=== PATIENT | female | born 1970 | race Caucasian/White ===

== ENCOUNTER 2016-07-12 10:30 | Day surgery (SDC) | payer BC, OTHER ==
[~2016-07-12] VITALS: Ht 162.6 cm; Wt 72.1 kg
[2016-07-12] MEDS ORDERED: NS IV 1000 ML 1,000 ML IV ONE (10:51)
[2016-07-12 10:57] LABS: BASOPHILS % (AUTO) 0 % (0-10); BILIRUBIN,URINE NEGATIVE (NEGATIVE); EOSINOPHILS # (AUTO) 0.3 10^3/uL (0.0-0.3); EOSINOPHILS % (AUTO) 2 % (0-10); KETONES,URINE NEGATIVE (NEGATIVE); LEUKOCYTE ESTERASE ,URINE NEGATIVE (NEGATIVE); LYMPHOCYTES # (AUTO) 4.3 X 10^3 (1.0-4.0); LYMPHOCYTES % (AUTO) 34 % (12-44); MEAN CORPUSCULAR HEMOGLOBIN 33 PG (25-34); MEAN CORPUSCULAR HGB CONC 35 G/DL (32-36); MEAN CORPUSCULAR VOLUME 95 FL (80-99); MEAN PLATELET VOLUME 9.3 FL (7.4-10.4); MONOCYTES # (AUTO) 0.8 X 10^3 (0.0-1.0); MONOCYTES % (AUTO) 7 % (0-12); NEUTROPHILS % (AUTO) 57 % (42-75); NITRITE,URINE NEGATIVE (NEGATIVE); PH,URINE 7 (5-9); PLATELET COUNT 265 10^3/uL (130-400); PROTEIN,URINE NEGATIVE (NEGATIVE); RED CELL DISTRIBUTION WIDTH 12.7 % (10.0-14.5); UROBILINOGEN,URINE NORMAL (NORMAL); WHITE BLOOD COUNT 12.4 10^3/uL (4.3-11.0)
[2016-07-12 11:04] LABS: SQUAMOUS EPITHELIAL CELL,UR 0-2 /HPF
[2016-07-12 11:14] LABS: ALANINE AMINOTRANSFERASE 30 U/L (0-55); ALBUMIN 4.9 G/DL (3.2-4.5); ANION GAP 10 MMOL/L (5-14); ASPARTATE AMINO TRANSFERASE 24 U/L (5-34); BILIRUBIN,TOTAL 0.3 MG/DL (0.1-1.0); BLOOD UREA NITROGEN 7 MG/DL (7-18); BUN/CREATININE RATIO 9; CALCIUM 9.4 MG/DL (8.5-10.1); CARBON DIOXIDE 22 MMOL/L (21-32); CHLORIDE 105 MMOL/L (98-107); CREATININE SERUM 0.82 MG/DL (0.60-1.30); GFR ESTIMATED > 60; GLUCOSE 80 MG/DL (70-105); POTASSIUM 4.5 MMOL/L (3.6-5.0); SODIUM 137 MMOL/L (135-145); TOTAL PROTEIN 8.4 G/DL (6.4-8.2)
[2016-07-12] MEDS ORDERED: fentaNYL INJECTION 100 MCG/2 ML AMP IVP STA (11:30)
--- NOTE | 2016-07-12 11:39 | ED Abdominal Pain ---
General Chief Complaint: Abdominal/GI Problems Stated Complaint: ABD PAIN Nursing Triage Note: PT CO OF ABD PAIN FOR APPROX 3 DAYS, R LOWER QUAD, LOW GRADE FEVER. Sepsis Screen: No Definite Risk Source of Information: Patient Exam Limitations: No Limitations History of Present Illness Time Seen By Provider: 11:25 Initial Comments Here with complaint of increasing right lower abdominal pain for the last 3 days. Also reports that she has had fever and chills subjectively. Has had some nausea but no diarrhea. Last meal at midnight at work but did not eat much and did take some ibuprofen this morning for fever. Denies dysuria, diarrhea or vaginal discharge. Pain worsens when walking or moving. Timing/Duration: 2-3 Days, Getting Worse, Intermittent Severity/Quality: Moderate, Sharp Location: RLQ Radiation: Back Activities at Onset: None Modifying Factors: Worsens With Movement Associated Symptoms: Fever/Chills, Nausea/Vomiting, No Swelling/Mass in Abdomen , No Weakness Allergies and Home Medications Allergies Coded Allergies: codeine (Verified Allergy, Unknown, 07/12/16) peanut (Verified Allergy, Unknown, 07/12/16) Uncoded Allergies: eggs (Allergy, Unknown, 07/12/16) Home Medications No Active Prescriptions or Reported Meds Review of Systems Constitutional: see HPI, chills, fever EENTM: No Symptoms Reported Respiratory: No Symptoms Reported Cardiovascular: No Symptoms Reported Gastrointestinal: See HPI, Abdominal Pain, Denies Diarrhea, Nausea, Vomiting Genitourinary: No Symptoms Reported Musculoskeletal: see HPI, No muscle weakness Skin: no symptoms reported All Other Systems Reviewed Negative Unless Noted: Yes Past Upmprqd-Asxkqu-Igpzeu Hx Patient Social History Alcohol Use: Denies Use Recreational Drug Use: No Smoking Status: Current Everyday Smoker Type Used: Cigarettes Recent Foreign Travel: No Contact w/Someone Who Travel: No Recent Infectious Disease Expo: No Surgeries HX Surgeries: Yes Surgeries: Abdominal, Gallbladder, Tubal Ligation Respiratory Hx Respiratory Disorders: No Cardiovascular Hx Cardiac Disorders: No Neurological Hx Neurological Disorders: No Reproductive System Female Reproductive Disorders: 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 Genitourinary Hx Genitourinary Disorders: No Gastrointestinal Hx Gastrointestinal Disorders: No Musculoskeletal Hx Musculoskeletal Disorders: No Reviewed Nursing Assessment Reviewed/Agree w Nursing PMH: Yes Family Medical History Significant Family History: No Pertinent Family Hx Physical Exam Vital Signs VS - Last 72 Hours, by Label 07/12/16 10:51 Temp 98.2 Pulse 73 Resp 18 B/P (MAP) 155/98 Pulse Ox 100 Capillary Refill : Less Than 3 Seconds General Appearance: WD/WN, mild distress HEENT: PERRL/EOMI, pharynx normal Neck: full range of motion, supple Respiratory: lungs clear, normal breath sounds Cardiovascular: regular rate, rhythm, no murmur Peripheral Pulses: 2+ Dorsalis Pedis (R), 2+ Left Dors-Pedis (L), 2+ Radial Pulses (R), 2+ Radial Pulses (L) Gastrointestinal: soft, guarding, tenderness (right lower quadrant) Extremities: non-tender, normal inspection Back: normal inspection, no CVA tenderness, no vertebral tenderness Neurologic/Psychiatric: alert, oriented x 3 Skin: normal color, warm/dry Progress/Results/Core Measures Results/Orders Lab Results Laboratory Tests Test 07/12/16 10:45 Range/Units White Blood Count 12.4 H 4.3-11.0 10^3/uL Red Blood Count 4.70 4.35-5.85 10^6/uL Hemoglobin 15.5 11.5-16.0 G/DL Hematocrit 45 35-52 % Mean Corpuscular Volume 95 80-99 FL Mean Corpuscular Hemoglobin 33 25-34 PG Mean Corpuscular Hemoglobin Concent 35 32-36 G/DL Red Cell Distribution Width 12.7 10.0-14.5 % Platelet Count 265 130-400 10^3/uL Mean Platelet Volume 9.3 7.4-10.4 FL Neutrophils (%) (Auto) 57 42-75 % Lymphocytes (%) (Auto) 34 12-44 % Monocytes (%) (Auto) 7 0-12 % Eosinophils (%) (Auto) 2 0-10 % Basophils (%) (Auto) 0 0-10 % Neutrophils # (Auto) 7.0 1.8-7.8 X 10^3 Lymphocytes # (Auto) 4.3 H 1.0-4.0 X 10^3 Monocytes # (Auto) 0.8 0.0-1.0 X 10^3 Eosinophils # (Auto) 0.3 0.0-0.3 10^3/uL Basophils # (Auto) 0.0 0.0-0.1 10^3/uL Urine Color YELLOW Urine Clarity CLEAR Urine pH 7 5-9 Urine Specific [place] 1.005 L 1.016-1.022 Urine Protein NEGATIVE NEGATIVE Urine Glucose (UA) NEGATIVE NEGATIVE Urine Ketones NEGATIVE NEGATIVE Urine Nitrite NEGATIVE NEGATIVE Urine Bilirubin NEGATIVE NEGATIVE Urine Urobilinogen NORMAL NORMAL MG/DL Urine Leukocyte Esterase NEGATIVE NEGATIVE Urine RBC (Auto) 2+ H NEGATIVE Urine RBC 0-2 /HPF Urine WBC NONE /HPF Urine Squamous Epithelial Cells 0-2 /HPF Urine Crystals NONE /LPF Urine Bacteria NEGATIVE /HPF Urine Casts NONE /LPF Urine Mucus NEGATIVE /LPF Urine Culture Indicated NO Urine Test NEGATIVE NEGATIVE Sodium Level 137 135-145 MMOL/L Potassium Level 4.5 3.6-5.0 MMOL/L Chloride Level 105 98-107 MMOL/L Carbon Dioxide Level 22 21-32 MMOL/L Anion Gap 10 5-14 MMOL/L Blood Urea Nitrogen 7 7-18 MG/DL Creatinine 0.82 0.60-1.30 MG/DL Estimat Glomerular Filtration Rate > 60 BUN/Creatinine Ratio 9 Glucose Level 80 70-105 MG/DL Calcium Level 9.4 8.5-10.1 MG/DL Total Bilirubin 0.3 0.1-1.0 MG/DL Aspartate Amino Transf (AST/SGOT) 24 5-34 U/L Alanine Aminotransferase (ALT/SGPT) 30 0-55 U/L Alkaline Phosphatase 55 40-136 U/L Total Protein 8.4 H 6.4-8.2 G/DL Albumin 4.9 H 3.2-4.5 G/DL My Orders Orders - AGUILA MASCORRO MD Cbc With Automated Diff (07/12/16 10:51) Comprehensive Metabolic Panel (07/12/16 10:51) Hcg,Qualitative Urine (07/12/16 10:51) Ua Culture If Indicated (07/12/16 10:51) Saline Lock/Iv-Start (07/12/16 10:51) Ns Iv 1000 Ml (Sodium Chloride 0.9%) (07/12/16 10:51) Ct Abd/Pelv W (Appendicitis) (07/12/16 11:30) Fentanyl Injection (Sublimaze Injection (07/12/16 11:30) Iohexol Injection (Omnipaque 350 Mg/Ml 1 (07/12/16 11:45) Sodium Chloride Flush (Catheter Flush Sy (07/12/16 11:45) Ns (Ivpb) (Sodium Chloride 0.9% Ivpb Bag (07/12/16 11:45) Medications Given in ED Current Medications Medications Dose Ordered Sig/Kristal Route Start Time Stop Time Status Last Admin Dose Admin Iohexol 100 ml ONCE ONCE IV 07/12/16 11:45 07/12/16 11:58 DC 07/12/16 11:45 100 ML Sodium Chloride 100 ml ONCE ONCE IV 07/12/16 11:45 07/12/16 11:58 DC 07/12/16 11:45 80 ML Sodium Chloride 1,000 ml @ 0 mls/hr Q0M ONCE IV 07/12/16 10:51 07/12/16 10:53 DC 07/12/16 11:28 1,000 MLS/HR Vital Signs/I&O Vital Sign - Last 12Hours 07/12/16 10:51 Temp 98.2 Pulse 73 Resp 18 B/P (MAP) 155/98 Pulse Ox 100 Blood Pressure Mean: 117 Progress Note : Progress Note Seen and evaluated. IV, labs, UA, normal saline 1 L bolus, Zofran 4 mg IV ordered. Fentanyl [address] abdomen pelvis ordered. Monitor patient. 1311: I did discuss the case with Dr. Gandhi. Patient still has exam findings concerning for appendicitis with CT does not show it. I have asked him to see the patient in the ER. 1345: Dr. Gandhi has seen the patient in the ER and agrees that there is a high likelihood of early acute appendicitis and he has discussed this with the patient. Ultimately they decided that she would have an appendectomy. Patient remains nothing by mouth. Admit, observation status. Patient to go to the OR later this evening. Patient comfortable after pain medicines given earlier. Patient and family agree with plan. Diagnostic Imaging Diagonstic Imaging: CT Plain Films/CT/US/NM/MRI: abdomen, pelvis Comments NAME: SARA CULLEN [facility] REC#: [id number] PT STATUS: REG ER : 1970 PHYSICIAN: AGUILA MASCORRO MD ADMIT DATE: 07/12/16/ER Signed Date of Exam: 07/12/16 CT ABD/PELV W (APPENDICITIS) PROCEDURE: CT abdomen and pelvis with contrast, rule out appendicitis. TECHNIQUE: Multiple contiguous axial images were obtained through the abdomen and pelvis after the administration of intravenous contrast. INDICATION: Abdominal pain. 100 mL of Omnipaque-350 is administered intravenously. FINDINGS: Minimal atelectasis at the lung bases seen. The liver demonstrates a hypodense lesion in the right hepatic lobe measuring 1.5 x 1.2 cm with delayed enhancement of uncertain etiology. There is mild intrahepatic biliary dilatation. The CBD is minimally dilated at 1.2 cm. Cholecystectomy clips are seen. The spleen and the adrenal glands appear unremarkable. The pancreas demonstrates minimal dilatation of the pancreatic duct measuring up to 4 mm in caliber. The left kidney demonstrates an upper pole 2.3 cm simple cyst. Symmetric enhancement otherwise in the parenchyma is seen with no focal lesion. The abdominal aorta is normal in caliber. No para-aortic significantly enlarged lymph node is seen. There is no bowel obstruction. The urinary bladder is mildly distended with no focal mass identified. The appendix projects into the upper posterior aspect of the pelvis. The uterus and adnexa appear grossly unremarkable. No free fluid or fluid collection in the abdomen or pelvis seen. The osseous structures appear grossly unremarkable. IMPRESSION: 1. Hypodense 1.2 cm mass in the right hepatic lobe of uncertain etiology. Further evaluation with MRI of the abdomen, liver mass protocol is recommended. 2. Minimal dilatation of the biliary tree and the pancreatic duct with no focal lesion identified. Dictated by: Dictated on workstation # [id number] Dict: 07/12/16 1205 Trans: 07/12/16 1232 [id number] Interpreted by: ANGELINA ZARCO MD Electronically signed by:ANGELINA ZARCO MD 07/12/16 1232 Departure Communication Time/Spoke to Admitting Phy: 13:11 Impression Impression: Primary Impression: Appendicitis Qualified Codes: K35.3 - Acute appendicitis with localized peritonitis Disposition: ADMITTED INPATIENT Condition: Stable Decision to Admit Reason: Admit from ER (General) Decision to Admit/Date: Jul 12, 2016 Time/Decision to Admit Time: 13:45 Departure-Patient Inst. Referrals: [facility] (PCP/Family) Primary Care Physician Scripts No Active Prescriptions or Reported Meds AGUILA MASCORRO MD Jul 12, 2016 11:39
[2016-07-12] MEDS ORDERED: CATHETER FLUSH 10 ML SYR IV PRN ×2 (11:45→15:00)
[2016-07-12] MEDS ORDERED: NS 100 ML (IVPB) BAG IV ONE (11:45)
[2016-07-12] MEDS ORDERED: IOHEXOL 350 MG/ML 100 ML (OMNIPAQUE 350) VIAL IV ONE (11:45)
--- NOTE | 2016-07-12 12:31 | Diagnostic Imaging Report ---
PROCEDURE: CT abdomen and pelvis with contrast, rule out appendicitis. TECHNIQUE: Multiple contiguous axial images were obtained through the abdomen and pelvis after the administration of intravenous contrast. INDICATION: Abdominal pain. 100 mL of Omnipaque-350 is administered intravenously. FINDINGS: Minimal atelectasis at the lung bases seen. The liver demonstrates a hypodense lesion in the right hepatic lobe measuring 1.5 x 1.2 cm with delayed enhancement of uncertain etiology. There is mild intrahepatic biliary dilatation. The CBD is minimally dilated at 1.2 cm. Cholecystectomy clips are seen. The spleen and the adrenal glands appear unremarkable. The pancreas demonstrates minimal dilatation of the pancreatic duct measuring up to 4 mm in caliber. The left kidney demonstrates an upper pole 2.3 cm simple cyst. Symmetric enhancement otherwise in the parenchyma is seen with no focal lesion. The abdominal aorta is normal in caliber. No para-aortic significantly enlarged lymph node is seen. There is no bowel obstruction. The urinary bladder is mildly distended with no focal mass identified. The appendix projects into the upper posterior aspect of the pelvis. The uterus and adnexa appear grossly unremarkable. No free fluid or fluid collection in the abdomen or pelvis seen. The osseous structures appear grossly unremarkable. IMPRESSION: 1. Hypodense 1.2 cm mass in the right hepatic lobe of uncertain etiology. Further evaluation with MRI of the abdomen, liver mass protocol is recommended. 2. Minimal dilatation of the biliary tree and the pancreatic duct with no focal lesion identified. Dictated by: Dictated on workstation # [id number]
--- NOTE | 2016-07-12 14:10 | History & Physicial ---
History of Present Illness History of Present Illness Reason for visit/HPI 36 hours of pain over the right lower quadrant of the abdomen, associated with nausea and anorexia. No gynecologic symptoms Date of Admission I consulted on this patient on 07/12/16 14:07 Attending Physician Admitting Physician Gianna,[facility] Allergies and Home Medications Allergies Coded Allergies: codeine (Verified Allergy, Unknown, 07/12/16) peanut (Verified Allergy, Unknown, 07/12/16) Uncoded Allergies: eggs (Allergy, Unknown, 07/12/16) Home Medications No Active Prescriptions or Reported Meds Past Scpfpsl-Ubgkii-Okgtxf Hx Patient Social History Marrital Status: cohabiting Employed/Student: employed Alcohol Use: Denies Use Recreational Drug Use: No Smoking Status: Current Everyday Smoker Type Used: Cigarettes Recent Foreign Travel: No Contact w/other who traveled: No Recent Infectious Disease Expo: No Surgeries HX Surgeries: Yes Surgeries: Abdominal, Gallbladder, Tubal Ligation Respiratory Hx Respiratory Disorders: No Cardiovascular Hx Cardiovascular Disorders: No Neurological Hx Neurological Disorders: No Reproductive System Female Reproductive Disorders: Endometriosis Genitourinary Hx Genitourinary Disorders: No Gastrointestinal Hx Gastrointestinal Disorders: No Musculoskeletal Hx Musculoskeletal Disorders: No Reviewed Nursing Assessment Reviewed/Agree w Nursing PMH: Yes Family Medical History Significant Family History: No Pertinent Family Hx Constitutional: malaise EENTM: no symptoms reported Respiratory: no symptoms reported Cardiovascular: no symptoms reported Gastrointestinal: RLQ, abdominal pain (RLQ) Genitourinary: no symptoms reported : No Musculoskeletal: no symptoms reported Skin: no symptoms reported Psychiatric/Neurological: No Symptoms Reported Other anorexia Physical Exam Vital Signs Vital Sign - Last 12Hours 07/12/16 10:51 Temp 98.2 Pulse 73 Resp 18 B/P (MAP) 155/98 Pulse Ox 100 Capillary Refill : Less Than 3 Seconds General Appearance: Mild Distress HEENT: PERRL/EOMI Neck: Normal Inspection Respiratory: Lungs Clear Cardiovascular: Regular Rate, Rhythm Gastrointestinal: Tenderness Rectal: Deferred Extremity: Normal Inspection Neurologic/Psychiatric: Alert, Oriented x3 Skin: Warm/Dry Comments severe tenderness over the right lower quadrant. Subumbilical laparoscopic scar without incisional hernia Assessment/Plan Assessment and Plan lady with clinical features very indicating of appendicitis. CT negative. Leukocytosis. Reasonable to perform left scapular appendectomy. Operative details, expected recovery, the possibility of finding a normal appendix, postoperative wound infection and intra-abdominal abscess discussed in detail. Seems to understand and is willing to proceed with surgery, that'll be performed later today Problems: YOVANNY BARRIENTOS MD Jul 12, 2016 14:10
--- NOTE | 2016-07-12 14:11 | Progress Note-Pre Operative ---
Pre-Operative Progress Note H&P Reviewed The H&P was reviewed, patient examined and no changes noted. Date H&P Reviewed: Jul 12, 2016 Time H&P Reviewed: 14:10 Pre-Operative Diagnosis: right lower quadrant pain, possible appendicitis YOVANNY BARRIENTOS MD Jul 12, 2016 14:11
[2016-07-12] MEDS ORDERED: BUP/EPI 0.25% 1:200,000 (MARCAINE) 30 ML VIAL ONE (14:40)
[2016-07-12] MEDS ORDERED: morphine INJ 10 MG/ML 1ML (SYR OR VIAL) ONE (14:41)
[2016-07-12] MEDS ORDERED: LORA10TA7 PO (14:44)
[2016-07-12] MEDS ORDERED: LIDOCAINE PF 2% 10 ML (XYLOCAINE) AMP ONE (14:54)
[2016-07-12] MEDS ORDERED: SEVOFLURANE (ULTANE) 15 ML INHAL SOLN ONE ×5 (14:54→16:15)
[2016-07-12] MEDS ORDERED: LACTATED RINGERS 1,000 ML IV ONE ×2 (14:54→15:53)
[2016-07-12] MEDS ORDERED: proPOfol 200 MG/20 ML (DIPRIVAN) VIAL IV ONE (14:54)
[2016-07-12] MEDS ORDERED: MIDAZOLAM 2 MG/2 ML (VERSED) VIAL ONE (14:55)
[2016-07-12] MEDS ORDERED: fentaNYL INJECTION 100 MCG/2 ML AMP ONE ×2 (14:55→15:45)
[2016-07-12] MEDS ORDERED: ceFAZolin 1,000 MG (ANCEF) VIAL ONE ×2 (14:56→18:38)
[2016-07-12] MEDS ORDERED: NS (IVPB) 100 ML ONE (14:57)
[2016-07-12] MEDS ORDERED: fentaNYL INJECTION 100 MCG/2 ML AMP IV PRN ×3 (15:00→16:45)
[2016-07-12] MEDS ORDERED: ONDANSETRON 4 MG/2 ML (SDV) Z0FRAN IV PRN ×2 (15:00→16:30)
[2016-07-12] MEDS ORDERED: NS IV 1000 ML 1,000 ML IV SCH (15:00)
[2016-07-12] MEDS: LACTATED RINGERS 1,000 ML IV SCH ×4 (15:20→17:57)
[2016-07-12] MEDS: ceFAZolin 2 GM/50 ML NS 50 ML IV NR ×2 (15:20→15:59)
[2016-07-12] MEDS ORDERED: FLU TRIvalent (5 YOA+) 2016-17 (AFLURIA) 0.5 ML IM ONE (15:30)
[2016-07-12] MEDS ORDERED: ONDANSETRON 4 MG/2 ML (SDV) Z0FRAN ONE (15:32)
[2016-07-12] MEDS ORDERED: DEXAMETHASONE PF 10 MG/ML (DECADRON) VIAL ONE (15:32)
[2016-07-12] MEDS: metroNIDAZOLE 500MG/100ML IVPB 100 ML IV NR ×2 (15:35→15:59)
[2016-07-12] MEDS ORDERED: GLYCOPYRROLATE 0.2 MG/ML (ROBINUL) 2 ML VIAL ONE (16:06)
[2016-07-12] MEDS ORDERED: NEOSTIGMINE (BLOXIVERZ ) 1 MG/1ML 10 ML VIAL ONE (16:06)
--- NOTE | 2016-07-12 16:30 | Progress Note-Post Operative ---
Post-Operative Progess Note Surgeon (s)/Honing Machine Set Up Operator Tool (s) Surgeon YOVANNY BARRIENTOS MD Honing Machine Set Up Operator Tool: sCRUB NURSE Pre-Operative Diagnosis right lower quadrant pain, possible appendicitis Post-Operative Diagnosis aCUTE RETROCECAL APPENDICITIS WITH Appendicolith Post-Op Procedure Note Date of Procedure: Jul 12, 2016 Name of Procedure Performed: Laparoscopic appendectomy Description of the Procedure: Routine Findings of the Procedure inflamed retrocecal appendix with appendicolith Estimated blood loss (mL): Minimal Specimen(s) collected/removed Appendix YOVANNY BARIRENTOS MD Jul 12, 2016 4:30 pm
[2016-07-12] MEDS ORDERED: TRAM50TA2 PO (16:35)
--- NOTE | 2016-07-12 16:35 | Discharge Inst-Simple/Standard ---
Discharge Inst-Standard Discharge Medications New, Converted or Re-Newed RX: RX on Chart Patient Instructions/Follow Up Plan of Care/Instructions/FU: Dressings off in a.m. Follow-up in 2 weeks Activity as Tolerated: Yes Discharge Diet: No Restrictions YOVANNY BARRIENTOS MD Jul 12, 2016 4:35 pm
[2016-07-12] MEDS ORDERED: morphine INJ 10 MG/ML 1ML (SYR OR VIAL) IV PRN (16:45)
[2016-07-12] MEDS ORDERED: ONDANSETRON 4 MG/2 ML (SDV) Z0FRAN IV ONE (16:45)
[2016-07-12] MEDS ORDERED: HYDROmorphone (DILAUDID) 2 MG/ML VIAL IV PRN (16:45)
[2016-07-12 17:30] VITALS: BP 131/90
[2016-07-12 20:00] VITALS: BP 100/68
[2016-07-12] MEDS: ceFAZolin INJECTION 1,000 MG in NS (IVPB) 50 ML IV SCH (21:32)
[2016-07-12] MEDS: metroNIDAZOLE 500MG/100ML IVPB 100 ML IV SCH (22:24)
[2016-07-13] VITALS: BP 103/72
[2016-07-13] MEDS: LACTATED RINGERS 1,000 ML IV SCH (03:13)
[2016-07-13 04:00] VITALS: BP 116/74
[2016-07-13] MEDS: metroNIDAZOLE 500MG/100ML IVPB 100 ML IV SCH (05:33)
[2016-07-13] MEDS ORDERED: KETOROLAC 15 MG/ML VIAL IV SCH (06:00)
[2016-07-13] MEDS: ceFAZolin INJECTION 1,000 MG in NS (IVPB) 50 ML IV SCH (06:35)
[2016-07-13 08:00] VITALS: BP 125/80
--- NOTE | 2016-07-13 08:13 | Progress Note-Standard ---
Standard Progress Note Progress Notes/Assess & Plan Progress/Assessment & Plan 07/13/16:doing well. Tolerating diet. Incisions dry. Could be discharged. Final Diagnosis acute appendicitis YOVANNY BARRIENTOS MD Jul 13, 2016 8:13 am
--- NOTE | 2016-07-13 08:21 | OPERATIVE REPORT ---
PROCEDURE PHYSICIAN: YOVANNY BARRIENTOS DATE OF PROCEDURE: 07/12/2016 PREOPERATIVE DIAGNOSIS: Acute appendicitis. POSTOPERATIVE DIAGNOSIS: Acute appendicitis. OPERATION: Laparoscopic appendectomy. SURGEON: Dr. Barrientos. ANESTHESIA: General anesthesia. BLOOD LOSS: Minimal. FLUIDS: 1500 mL of crystalloids. TYPE OF WOUND: Type III (contaminant wound). INDICATION FOR THE PROCEDURE: This lady presented with clinical features of acute appendicitis. Despite a negative CT scan, due to clinical concerns, it was felt reasonable to proceed with laparoscopy and complete appendectomy. Informed consent was obtained after reviewing the operative details and complications of postoperative wound infection and intra-abdominal abscess. DESCRIPTION OF PROCEDURE: She was placed supine on the operative table and general anesthesia induced using an endotracheal tube. A 2 gram of Ancef and 500 mg of Flagyl were administered intravenously as prophylaxis against infection. Sequential compression devices were placed around her legs, to minimize the risk of venous thrombus. Abdomen was prepared and draped in the usual sterile manner. A supraumbilical incision was made and the linea incised vertically. A Stewart cannula was placed and carbon dioxide insufflated, to an intra-abdominal pressure of 15 mmHg. Anatomy was visualized using a 30 degree laparoscope. Initially, omentum was found and trapped underneath the Stewart cannula. Therefore, I placed a 5 mm trocar over each quadrant of the abdomen, followed by a 12 mm trocar over the left lower quadrant. When the initial access point was examined, there was no iatrogenic injury. Omentum was taken down using a grasper introduced via the trocar over the left upper quadrant and we proceeded with appendectomy. The patient was then turned into Trendelenburg position, with the right side tilted up. Once the ileocecal junction was gently displaced, an inflamed and long retrocecal appendix with an engorged appendicolith came into view. Appendectomy was then completed using an Endo ALLIE stapler across the mesoappendix and the base of the appendix itself. Hemostasis along the staple line was satisfactory. The appendix was then placed in an Endo Catch bag and removed via the supraumbilical trocar site. Subsequently, the fascia over this incision was closed using number 1 Vicryl. Skin was closed using 4-0 Vicryl, in a subcuticular fashion. 0.25% Marcaine with epinephrine was infiltrated along the incisions, both preemptively and at the conclusion of the operation. She tolerated the procedure well, was extubated in the operating room and taken to the recovery room in a stable condition. [place], sponges, and instruments were correct at the end of the operation. Job ID: [id number] Dictated Date: 07/12/2016 16:27:52 Mail Machine Operator Date: 07/13/2016 08:16:04 / da GUAN
[2016-07-13 11:02] VITALS: BP 125/80
--- NOTE | 2016-07-13 11:40 | Anesthesia-General Post-Op ---
General Patient Condition Mental Status/LOC: Same as Preop Cardiovascular: Satisfactory Nausea/Vomiting: Absent Respiratory: Satisfactory Pain: Controlled Complications: Absent Post Op Complications Complications None Follow Up Care/Instructions Patient Instructions None needed. Anesthesia/Patient Condition Patient Condition Patient is doing well, no complaints, stable vital signs, no apparent adverse anesthesia problems. She will be discharged home in am, per patient. KATHY JOHNSON DO Jul 13, 2016 11:40
--- OUTSIDE RECORDS SUMMARY | 2016-07-27 17:55 | XMS REPORT ---
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 Name Role Phone RAKAN GUZMAN CP Unavailable Allergies, Adverse Reactions, Alerts Substance Reaction Event Type Hydrocodone Bitartrate Info Not Available Drug Allergy Problems Problem Type Condition Code Onset Dates Condition Status Assessment History of endometriosis Z87.42 Active Assessment Dense breasts R92.2 Active Assessment Dysmenorrhea, unspecified N94.6 Active Problem Breast tenderness N64.4 Active Problem Dysmenorrhea, unspecified N94.6 Active Problem History of endometriosis Z87.42 Active Problem Dense breasts R92.2 Active Assessment Irregular menses N92.6 Active Problem Fibrocystic breast, right N60.11 Active Problem Fibrocystic breast, left N60.12 Active Assessment Loss or of family member Z63.4 Active Assessment Stress F43.9 Active Assessment Breast tenderness N64.4 Active Medications Medication Code System Code Instructions Start Date End Date Status Dosage Vitamin E [facility] [address]-66 100 UNIT Orally Once a day 1 capsule Irina Allergy [facility] [id number] 60 MG Orally not defined Procedures Procedure Coding System Code Date Office Visit, Est Pt., Level 3 CPT-4 03883 May 29, 2015 Vital Signs Date/Time: May 29, 2015 Temperature 97.6 F Weight 149.9 lbs Height 64 in BMI 25.73 Index Blood Pressure Diastolic 78 mmHg Blood Pressure Systolic 128 mmHg Cardiac Monitoring Heart Rate 84 bpm Results No Known Results Summary Purpose eClinicalWorks Submission
--- OUTSIDE RECORDS SUMMARY | 2016-07-27 17:55 | XMS REPORT | Continuity of Care Document ---
Author Author [facility] Organization [facility] Address Unknown Phone Unavailable Allergies Active Description Code Type Severity Reaction Onset Reported/Identified Relationship to Patient Clinical Status Yes codeine [id number] Drug Allergy Unknown N/A 07/12/2016 Yes eggs eggs Unknown N/A 07/12/2016 Yes peanut [id number] Drug Allergy Unknown N/A 07/12/2016 Medications Problems Date Dx Coded Attending Type Code Diagnosis Diagnosed By 07/13/2016 FLOYD ORONA, YOVANNY Milligan Ot F17.210 NICOTINE DEPENDENCE, CIGARETTES, UNCOMPL 07/13/2016 FLOYD ORONA, YOVANNY Milligan Ot K35.80 UNSPECIFIED ACUTE APPENDICITIS 07/14/2016 FLOYD ORONA, YOVANNY Milligan Ot F17.210 NICOTINE DEPENDENCE, CIGARETTES, UNCOMPL 07/14/2016 YOVANNY BARRIENTOS MD Ot K35.80 UNSPECIFIED ACUTE APPENDICITIS 07/14/2016 YOVANNY BARRIENTOS MD Ot F17.210 NICOTINE DEPENDENCE, CIGARETTES, UNCOMPL 07/14/2016 YOVANNY BARRIENTOS MD Ot K35.80 UNSPECIFIED ACUTE APPENDICITIS 07/22/2016 YOVANNY BARRIENTOS MD Ot F17.210 NICOTINE DEPENDENCE, CIGARETTES, UNCOMPL 07/22/2016 YOVANNY BARRIENTOS MD Ot K35.80 UNSPECIFIED ACUTE APPENDICITIS Procedures Results Test Result Range Complete blood count (CBC) with automated white blood cell (WBC) differential - 07/12/16 10:45 Blood leukocytes automated count (number/volume) 12.4 10*3/ uL 4.3-11.0 Blood erythrocytes automated count (number/volume) 4.70 10*6 /uL 4.35-5.85 Venous blood hemoglobin measurement (mass/volume) 15.5 g/dL 11.5-16.0 Blood hematocrit (volume fraction) 45 % 35-52 Automated erythrocyte mean corpuscular volume 95 [foz_us] 80-99 Automated erythrocyte mean corpuscular hemoglobin (mass per erythrocyte) 33 pg 25-34 Automated erythrocyte mean corpuscular hemoglobin concentration measurement ( mass/volume) 35 g/dL 32-36 Automated erythrocyte distribution width ratio 12.7 % 10.0-14.5 Automated blood platelet count (count/volume) 265 10*3/uL 130-400 Automated blood platelet mean volume measurement 9.3 [foz_us ] 7.4-10.4 Automated blood neutrophils/100 leukocytes 57 % 42-75 Automated blood lymphocytes/100 leukocytes 34 % 12-44 Blood monocytes/100 leukocytes 7 % 0-12 Automated blood eosinophils/100 leukocytes 2 % 0-10 Automated blood basophils/100 leukocytes 0 % 0-10 Blood neutrophils automated count (number/volume) 7.0 10*3 1.8-7.8 Blood lymphocytes automated count (number/volume) 4.3 10*3 1.0-4.0 Blood monocytes automated count (number/volume) 0.8 10*3 0.0-1.0 Automated eosinophil count 0.3 10*3/uL 0.0-0.3 Automated blood basophil count (count/volume) 0.0 10*3/uL 0.0-0.1 Complete urinalysis with reflex to culture - 07/12/16 10:45 Urine color determination YELLOW NRG Urine clarity determination CLEAR NRG Urine pH measurement by test strip 7 5- 9 Specific gravity of urine by test strip 1.005 1.016-1.022 Urine protein assay by test strip, semi-quantitative NEGATIVE NEGATIVE Urine glucose detection by automated test strip NEGATIVE NEGATIVE Erythrocytes detection in urine sediment by light microscopy 2+ NEGATIVE Urine ketones detection by automated test strip NEGATIVE NEGATIVE Urine nitrite detection by test strip NEGATIVE NEGATIVE Urine total bilirubin detection by test strip NEGATIVE NEGATIVE Urine urobilinogen measurement by automated test strip (mass/volume) NORMAL NORMAL Urine leukocyte esterase detection by dipstick NEGATIVE NEGATIVE Automated urine sediment erythrocyte count by microscopy (number/high power field) [HPF] NRG Automated urine sediment leukocyte count by microscopy (number/high power field ) NONE NRG Bacteria detection in urine sediment by light microscopy NEGATIVE NRG Squamous epithelial cells detection in urine sediment by light microscopy 0-2 NRG Crystals detection in urine sediment by light microscopy NONE NRG Casts detection in urine sediment by light microscopy NONE NRG Mucus detection in urine sediment by light microscopy NEGATIVE NRG Complete urinalysis with reflex to culture NO NRG Urine beta human chorionic gonadotropin (hCG) measurement - 07/12/16 10:45 Urine beta human chorionic gonadotropin (hCG) measurement NEGATIVE NEGATIVE Comprehensive metabolic panel - 07/12/16 10:45 Serum or plasma sodium measurement (moles/volume) 137 mmol/ L 135-145 Serum or plasma potassium measurement (moles/volume) 4.5 mmol/L 3.6-5.0 Serum or plasma chloride measurement (moles/volume) 105 mmol /L 98-107 Carbon dioxide 22 mmol/L 21-32 Serum or plasma anion gap determination (moles/volume) 10 mmol/L 5-14 Serum or plasma urea nitrogen measurement (mass/volume) 7 mg /dL 7-18 Serum or plasma creatinine measurement (mass/volume) 0.82 mg /dL 0.60-1.30 Serum or plasma urea nitrogen/creatinine mass ratio 9 NRG Serum or plasma creatinine measurement with calculation of estimated glomerular filtration rate > NRG Serum or plasma glucose measurement (mass/volume) 80 mg/dL 70-105 Serum or plasma calcium measurement (mass/volume) 9.4 mg/dL 8.5-10.1 Serum or plasma total bilirubin measurement (mass/volume) 0.3 mg/dL 0.1-1.0 Serum or plasma alkaline phosphatase measurement (enzymatic activity/volume) 55 U/L 40-136 Serum or plasma aspartate aminotransferase measurement (enzymatic activity/ volume) 24 U/L 5-34 Serum or plasma alanine aminotransferase measurement (enzymatic activity/volume ) 30 U/L 0-55 Serum or plasma protein measurement (mass/volume) 8.4 g/dL 6.4-8.2 Serum or plasma albumin measurement (mass/volume) 4.9 g/dL 3.2-4.5 Encounters ACCT No. Visit Date/Time Discharge Status Pt. Type Provider Facility Loc./Unit Complaint [id number] 07/12/2016 13:50:00 2016 10:00:00 DIS Outpatient YOVANNY BARRIENTOS MD [facility] ACUTE APPENDICITIS [id number] 05/07/2015 12:49:00 ACT Outpatient RAKAN GUZMAN APRN [facility] RAD
--- OUTSIDE RECORDS SUMMARY | 2016-07-27 17:55 | XMS REPORT ---
Author RAKAN Reeves [facility] eClinical[employer] Address Unknown Phone Unavailable Care Team Providers Care Shell Assembler Name Role Phone RAKAN GUZMAN Unavailable Allergies No Known Allergies Problems Problem Type Condition Code Onset Dates Condition Status Problem Breast tenderness N64.4 Active Problem Dysmenorrhea, unspecified N94.6 Active Problem History of endometriosis Z87.42 Active Problem Dense breasts R92.2 Active Problem Fibrocystic breast, right N60.11 Active Problem Fibrocystic breast, left N60.12 Active Medications No Known Medications Results No Known Results Summary Purpose eClinicalWorks Submission
--- OUTSIDE RECORDS SUMMARY | 2016-07-27 17:55 | XMS REPORT ---
Author RAKAN Reeves [facility] eClinical[employer] Address Unknown Phone Unavailable Care Team Providers Care Consulting Analyst Name Role Phone RAKAN GUZMAN Unavailable Allergies, Adverse Reactions, Alerts Substance Reaction Event Type N.K.D.A. Info Not Available Non Drug Allergy Problems Problem Type Condition Code Onset Dates Condition Status Assessment Screening for malignant neoplasm of cervix Z12.4 Active Assessment History of endometriosis Z87.42 Active Assessment Routine screening for STI (sexually transmitted infection) Z11.3 Active Problem Breast tenderness N64.4 Active Problem Dysmenorrhea, unspecified N94.6 Active Problem History of endometriosis Z87.42 Active Problem Dense breasts R92.2 Active Assessment Irregular menses N92.6 Active Problem Fibrocystic breast, right N60.11 Active Problem Fibrocystic breast, left N60.12 Active Assessment Dense breasts R92.2 Active Assessment Fibrocystic breast, left N60.12 Active Assessment Stress F43.9 Active Assessment Screening for malignant neoplasm of breast Z12.39 Active Assessment Fibrocystic breast, right N60.11 Active Assessment Vaginal discharge N89.8 Active Assessment Dysmenorrhea, unspecified N94.6 Active Assessment Breast tenderness N64.4 Active Medications Medication Code System Code Instructions Start Date End Date Status Dosage Irina Allergy [facility] [address]-06 60 MG Orally not defined Procedures Procedure Coding System Code Date No Charge CPT-4 90733 Apr 21, 2015 TRICHOMONAS ASSAY W/OPTIC CPT-4 49855 Apr 21, 2015 URINE TEST CPT-4 24429 Apr 21, 2015 Office Visit, New Pt., Level 4 CPT-4 04591 Apr 21, 2015 SPECIMEN HANDLING CPT-4 23806 Apr 21, 2015 CULTURE, BACTERIA, OTHER CPT-4 53554 Apr 21, 2015 VENIPUNCT, ROUTINE* CPT-4 95278 Apr 21, 2015 ASSAY THYROID STIM HORMONE CPT-4 24366 Apr 21, 2015 Vital Signs Date/Time: Apr 21, 2015 Temperature 97.8 F Weight 149.9 lbs Height 64 in BMI 25.73 Index Blood Pressure Diastolic 82 mmHg Blood Pressure Systolic 134 mmHg Cardiac Monitoring Heart Rate 80 bpm Results Name Result Date Reference Range Unit Abnormality Flag PDF Report ----PDF Report1 [facility] [id number] Mammogram, Screening TEST, URINE (IN HOUSE) ----RESULTS Negative [id number] ----Lot # [id number] ----Control + [id number] ----Exp date [id number] ROUTINE VENIPUNCTURE Summary Purpose eClinicalWorks Submission
--- OUTSIDE RECORDS SUMMARY | 2016-07-27 17:55 | XMS REPORT ---
Author Author RAKAN GUZMAN [facility] eClinicalWorks Address Unknown Phone Unavailable Care Team Providers Care Machine Maintenance Technician Name Role Phone RAKAN GUZMAN Unavailable Allergies No Known Allergies Problems Problem Type Condition Code Onset Dates Condition Status Assessment Breast asymmetry N64.89 Active Assessment Screening for malignant neoplasm of breast Z12.39 Active Problem Breast tenderness N64.4 Active Problem Dysmenorrhea, unspecified N94.6 Active Problem History of endometriosis Z87.42 Active Problem Dense breasts R92.2 Active Assessment Breast tenderness N64.4 Active Problem Fibrocystic breast, right N60.11 Active Problem Fibrocystic breast, left N60.12 Active Medications No Known Medications Results No Known Results Summary Purpose eClinicalWorks Submission
--- OUTSIDE RECORDS SUMMARY | 2016-07-27 18:19 | XMS REPORT | Continuity of Care Document ---
Author Author [facility] Organization [facility] Address Unknown Phone Unavailable Allergies Active Description Code Type Severity Reaction Onset Reported/Identified Relationship to Patient Clinical Status Yes codeine [id number] Drug Allergy Unknown N/A 07/12/2016 Yes eggs eggs Unknown N/A 07/12/2016 Yes peanut [id number] Drug Allergy Unknown N/A 07/12/2016 Medications Problems [...] Status Pt. Type Provider Facility Loc./Unit Complaint [id number] 07/12/2016 13:50:00 2016 10:00:00 DIS Outpatient YOVANNY BARRIENTOS MD [facility] ACUTE APPENDICITIS [id number] 05/07/2015 12:49:00 ACT Outpatient RAKAN GUZMAN APRN [facility] RAD
--- OUTSIDE RECORDS SUMMARY | 2016-08-08 04:58 | XMS REPORT | Continuity of Care Document ---
Author Author [facility] Organization [facility] Address Unknown Phone Unavailable Allergies Active Description Code Type Severity Reaction Onset Reported/Identified Relationship to Patient Clinical Status Yes codeine [id number] Drug Allergy Unknown N/A 07/12/2016 Yes eggs eggs Unknown N/A 07/12/2016 Yes peanut [id number] Drug Allergy Unknown N/A 07/12/2016 Medications Problems [...] Status Pt. Type Provider Facility Loc./Unit Complaint [id number] 07/12/2016 13:50:00 2016 10:00:00 DIS Outpatient YOVANNY BARRIENTOS MD [facility] ACUTE APPENDICITIS [id number] 05/07/2015 12:49:00 ACT Outpatient RAKAN GUZMAN APRN [facility] RAD
== END 2016-07-13 10:00 | disposition home or self-care (01) ==
LOC: DELPENDDIS → EDUNIT# 10:30 → ER 10:32 → UNDOADMOB 13:50 → SDC 13:50 → 4TH 13:50 → UNDOADMOB 14:07 → DELPENDDIS 07-13 09:00 → UNDODISOB 07-13 10:00 → SDC 07-13 10:00
PROVIDERS: ATTEND Surgery
DX: K35.80 Unspecified acute appendicitis (principal); F17.210 Nicotine dependence, cigarettes, uncomplicated
CPT/HCPCS: 36415; 74177; 80053; 81000; 84703; 85025; 88304; 94664; 94760; 96361; 96374

== ENCOUNTER → 2017-02-09 | Outpatient (CLI) | payer BC ==
[~2017-02-09] MED LIST: LORA10TA7 PO; TRAM50TA2 PO
--- NOTE | 2017-02-09 14:32 | Diagnostic Imaging Report ---
EXAMINATION: Bilateral diagnostic mammogram. CAD is utilized. The current study was also evaluated with a Computer Aided Detection (CAD) system. Tomography evaluation is also performed. COMPARISON: 05/07/15. FINDINGS: The breast demonstrate global asymmetry with upper left breast dense tissue identified. This is similar to previous exam of 05/07/2015. No discrete masses identified. The fibroglandular tissue is of scattered fibroglandular densities on the right side. No suspicious calcifications are seen. IMPRESSION: Stable global asymmetry with dense fibroglandular tissue appearance in the upper aspect of the left breast noted. No discrete mass or suspicious calcifications identified. Ultrasound evaluation pending. BI-RADS 0. ACR BI-RADS Category 0: Incomplete. (Needs additional imaging evaluation). Result letter will be mailed to the patient. Note: At least 10% of breast cancer is not imaged by mammography. Dictated by: Dictated on workstation # [id number]
--- NOTE | 2017-02-09 15:36 | Diagnostic Imaging Report ---
EXAMINATION: Left breast ultrasound. INDICATION: Palpable lump and pain in the upper outer aspect of the left breast. Global asymmetry on mammography in the same region. FINDINGS: The four-quadrants and retroareolar region of the left breast demonstrate no underlying abnormality. IMPRESSION: Negative study. Global asymmetry with increased density in the upper aspect of the left breast could be normal for the patient. Consider evaluation with MRI of the breast given the persistence of the symptoms. If this is not performed, then a followup left breast mammogram in 6 months is recommended to ensure stability. ACR BI-RADS Category 3: Probably benign findings. Dictated by: Dictated on workstation # [id number]
== END ==
LOC: RAD 13:06
PROVIDERS: ATTEND Family Medicine
DX: N64.89 Other specified disorders of breast (principal)
CPT/HCPCS: 76641; 77066

== ENCOUNTER → 2018-02-10 | Outpatient (CLI) | payer BC ==
--- NOTE | 2018-02-10 15:27 | Diagnostic Imaging Report ---
INDICATION: Left breast asymmetry. Patient underwent screening mammogram one year ago. At that time, a recommendation was made for performance of an MRI. Reportedly, the patient obtained an MRI of the left breast from [facility] in [place]. In addition, patient underwent left breast biopsy. The results from the MRI and from the biopsy are not available for comparison, but patient reports that the biopsy was negative. COMPARISON: Correlation is made with prior mammogram from 02/09/2017 and 05/07/2015. TECHNIQUE: 2D and 3D bilateral diagnostic mammography was performed. FINDINGS: Scattered density in the right breast is seen. The area of asymmetric density in the upper-outer left breast posterior depth appears stable. There is now a biopsy clip anterior to the asymmetry. No discrete mass or malignant-appearing microcalcifications are seen. The axillae are unremarkable. IMPRESSION: Stable bilateral mammograms. No mammographic features suspicious for malignancy are identified. ACR BI-RADS Category 2: Benign findings. Result letter will be mailed to the patient. Note: At least 10% of breast cancer is not imaged by mammography. Dictated by: Dictated on workstation # [id number]
== END ==
LOC: RAD 12:45
PROVIDERS: ATTEND Family Medicine
DX: R92.8 Other abnormal and inconclusive findings on diagnostic imaging of breast (principal)
CPT/HCPCS: 77066

== ENCOUNTER → 2019-02-26 | Outpatient (CLI) | payer BC ==
--- NOTE | 2019-02-26 16:10 | Diagnostic Imaging Report ---
PROCEDURE: MRI lumbar spine. TECHNIQUE: Multiplanar, multisequence MRI of the lumbar spine was performed without contrast. INDICATION: Chronic low back pain. COMPARISON: No prior studies are available for comparison. FINDINGS: There is some straightening of the normal lumbar lordotic curvature. Minimal retrolisthesis of L3 on L4 and L4 on L5 is noted. The vertebral body heights are maintained. No acute compression fracture or geographic marrow lesion is identified. There is some desiccation noted at L3-L4, L4-L5, and L5-S1 levels compatible with some degenerative disc disease. The conus is unremarkable at the L1-L2 level. T12-L1: No central canal or neuroforaminal narrowing is detected. L1-L2: No central canal or neural neuroforaminal narrowing is identified. L2-L3: No central canal or neuroforaminal narrowing is detected. L3-L4: There is broad-based disc/osteophyte complex. This is slightly asymmetric and greater to the left. There is significant narrowing of the lateral recesses bilaterally. In addition, there is moderate left neuroforaminal narrowing. Central canal remains patent. There is some ligamentous thickening and facet changes. L4-L5: Broad-based disc/osteophyte complex indents the ventral thecal sac. There is moderate central canal narrowing. There is also significant bilateral lateral recess stenosis. There is significant right and mild left neuroforaminal stenosis. L5-S1: Broad-based disc/osteophyte complex results in mild central canal narrowing. There is significant narrowing of bilateral lateral recesses with significant right and left neuroforaminal stenosis. Paraspinous tissues demonstrate a probable cyst in the upper pole of the left kidney measuring 2.7 cm. IMPRESSION: 1. Multilevel lumbar spondylosis with multilevel central canal, lateral recess, and neuroforaminal stenosis described level by level above. No acute compression fracture is seen. 2. Probable 2.7 cm left renal cyst. Dictated by: Dictated on workstation # [id number]
== END ==
LOC: RAD 14:45
PROVIDERS: ATTEND Nurse Practitioner Family
DX: M47.26 Other spondylosis with radiculopathy, lumbar region (principal); M48.061 Spinal stenosis, lumbar region without neurogenic claudication
CPT/HCPCS: 72148

== ENCOUNTER 2020-09-18 01:30 | Emergency (ER) | payer BC ==
[~2020-09-18] VITALS: Ht 162.5 cm; Wt 68.9 kg
[~2020-09-18 01:30] MED LIST changes: -TRAM50TA2 PO; +TRM50T PO
--- NOTE | 2020-09-18 01:36 | ED Dyspnea ---
General Stated Complaint: SOA History of Present Illness Date Seen by Provider: Sep 18, 2020 Time Seen by Provider: 01:36 Initial Comments 49-year-old female presents with cough, shortness of breath and wheezing. Patient reports that she is has a little bit of a cough for a few days, has had some wheezing but tonight was significantly worse. She feels like tonight she is having a hard time coughing up and that the "inhaler is not working" patient denies any fevers or chills. She denies any chest pain, nausea or vomiting. Patient is currently being treated with Keflex for a UTI and a sinus infection. Allergies and Home Medications Allergies Coded Allergies: codeine (Verified Allergy, Unknown, 07/12/16) hydrocodone (Verified Allergy, Unknown, 09/18/20) peanut (Verified Allergy, Unknown, 07/12/16) Uncoded Allergies: eggs (Allergy, Unknown, 07/12/16) Home Medications Loratadine 10 Mg Tablet, 10 MG PO HS, (Reported) Tramadol HCl 50 Mg Tablet, 100 MG PO Q12H PRN for ABDOMINAL PAIN Prescribed by: YOVANNY BARRIENTOS on 07/12/16 1635 Patient Home Medication List Home Medication List Reviewed: Yes Review of Systems Review of Systems Constitutional: No chills, No fever Respiratory: cough, short of breath, wheezing Cardiovascular: No chest pain, No palpitations Gastrointestinal: No abdominal pain, No nausea, No vomiting Musculoskeletal: no symptoms reported Skin: no symptoms reported Psychiatric/Neurological: No Symptoms Reported Past Pgurcgs-Aenxjx-Ykgref Hx Past Med/Social Hx: Reviewed Nursing Past Med/Soc Hx Patient Social History Type Used: Cigarettes Seasonal Allergies Seasonal Allergies: Yes Past Medical History Surgeries: Yes Abdominal, Gallbladder, Tubal Ligation Respiratory: No Cardiac: No Neurological: No Female Reproductive Disorders: Endometriosis PROGRAM ANALYST History: Tubal Ligation Gastrointestinal: No Musculoskeletal: No Psychosocial: No Blood Disorders: No Family Medical History No Pertinent Family Hx Physical Exam Vital Signs Vital Signs - First Documented 09/18/20 01:33 Temp 37.1 Pulse 75 Resp 18 B/P (MAP) 137/99 (112) Pulse Ox 97 O2 Delivery Room Air Capillary Refill : Height, Weight, BMI Height: 5'4.00" Weight: 159lbs. 0.0oz. 72.308229xf; 27.3 BMI Method:Stated General Appearance: No Apparent Distress HEENT: Moist Mucous Membranes Neck: Non Tender Respiratory: No Accessory Muscle Use, No Respiratory Distress, Wheezing (Mild diffuse) Cardiovascular: Regular Rate, Rhythm, No Edema Gastrointestinal: Non Tender Extremity: Normal Capillary Refill, Normal Range of Motion Neurologic/Psychiatric: Oriented x3, Normal Mood/Affect, glass vial bending conveyor feeder II-XII Norm as Tested Skin: Normal Color, Warm/Dry Progress/Results/Core Measures Results/Orders Lab Results Laboratory Tests Test 09/18/20 01:55 Range/Units White Blood Count 12.0 H 4.3-11.0 10^3/uL Red Blood Count 4.48 4.35-5.85 10^6/uL Hemoglobin 14.5 11.5-16.0 G/DL Hematocrit 43 35-52 % Mean Corpuscular Volume 96 80-99 FL Mean Corpuscular Hemoglobin 32 25-34 PG Mean Corpuscular Hemoglobin Concent 34 32-36 G/DL Red Cell Distribution Width 12.4 10.0-14.5 % Platelet Count 314 130-400 10^3/uL Mean Platelet Volume 9.1 7.4-10.4 FL Immature Granulocyte % (Auto) 0 % Neutrophils (%) (Auto) 53 42-75 % Lymphocytes (%) (Auto) 34 12-44 % Monocytes (%) (Auto) 8 0-12 % Eosinophils (%) (Auto) 4 0-10 % Basophils (%) (Auto) 1 0-10 % Neutrophils # (Auto) 6.4 1.8-7.8 X 10^3 Lymphocytes # (Auto) 4.1 H 1.0-4.0 X 10^3 Monocytes # (Auto) 1.0 0.0-1.0 X 10^3 Eosinophils # (Auto) 0.4 H 0.0-0.3 10^3/uL Basophils # (Auto) 0.1 0.0-0.1 10^3/uL Immature Granulocyte # (Auto) 0.0 0.0-0.1 10^3/uL Sodium Level 138 135-145 MMOL/L Potassium Level 4.0 3.6-5.0 MMOL/L Chloride Level 106 98-107 MMOL/L Carbon Dioxide Level 23 21-32 MMOL/L Anion Gap 9 5-14 MMOL/L Blood Urea Nitrogen 10 7-18 MG/DL Creatinine 0.68 0.60-1.30 MG/DL Estimat Glomerular Filtration Rate > 60 BUN/Creatinine Ratio 15 Glucose Level 107 H 70-105 MG/DL Calcium Level 9.2 8.5-10.1 MG/DL Pro-B-Type Natriuretic Peptide 80.3 H <75.0 PG/ML Smear Scan OK My Orders Orders - GEETA GAO DO Chest Pa/Lat (2 View) (09/18/20 01:39) Albuterol/Ipra Inhalation Soln (Duoneb I (09/18/20 01:45) Methylprednisolone Sod Succ (Solu-Medrol (09/18/20 01:39) Svn Small Volume Nebulizer (09/18/20 01:39) Benzonatate Capsule (Tessalon Perles) (09/18/20 01:45) Basic Metabolic Panel (09/18/20 01:39) Cbc With Automated Diff (09/18/20 01:39) Probnp Fs (09/18/20 01:39) Medications Given in ED Current Medications Medications Dose Ordered Sig/Kristal Route Start Time Stop Time Status Last Admin Dose Admin Albuterol/ Ipratropium 3 ml ONCE ONCE INH 09/18/20 01:45 09/18/20 01:46 DC 09/18/20 01:59 3 ML Vital Signs/I&O 09/18/20 09/18/20 01:33 01:55 Temp 37.1 Pulse 75 Resp 18 B/P (MAP) 137/99 (112) Pulse Ox 97 95 O2 Delivery Room Air Room Air Progress Progress Note : Progress Note Patient symptoms completely resolved following treatment. She is feeling significantly better and ready to be discharged home. Recommend she follow-up with her primary care provider as needed Diagnostic Imaging Diagonstic Imaging: Xray Plain Films/CT/US/NM/MRI: chest Comments No pneumonia or infiltrate noted Reviewed: Reviewed by Me Departure Impression Primary Impression: Bronchitis Disposition: HOME, SELF-CARE Condition: Stable Departure-Patient Inst. Referrals: JEANA MONTELONGO MD (PCP/Family) Primary Care Physician Patient Instructions: Acute Bronchitis, How to Use Your Metered Dose Inhaler (Adults) Add. Discharge Instructions: Follow-up with your primary care provider for recheck of today's symptoms GEETA GAO DO Sep 18, 2020 01:36
[2020-09-18] MEDS ORDERED: methylPREDNISolone 125 MG (Solu-MEDROL) VIAL IV STA (01:39)
[2020-09-18] MEDS ORDERED: RT-ALBUTEROL/IPRATROPIUM 3 ML (DUONEB) VIAL INH ONE (01:45)
[2020-09-18] MEDS ORDERED: BENZONATATE 100 MG (TESSALON) CAPSULE PO SCH (01:45)
[2020-09-18 02:10] LABS: HEMATOCRIT 43 % (35-52); HEMOGLOBIN 14.5 G/DL (11.5-16.0); MEAN CORPUSCULAR HEMOGLOBIN 32 PG (25-34); MEAN CORPUSCULAR HGB CONC 34 G/DL (32-36); MEAN CORPUSCULAR VOLUME 96 FL (80-99)
[2020-09-18 02:11] LABS: BASOPHILS % (AUTO) 1 % (0-10); EOSINOPHILS % (AUTO) 4 % (0-10); LYMPHOCYTES % (AUTO) 34 % (12-44); MEAN PLATELET VOLUME 9.1 FL (7.4-10.4); MONOCYTES % (AUTO) 8 % (0-12); NEUTROPHILS % (AUTO) 53 % (42-75); PLATELET COUNT 314 10^3/uL (130-400)
[2020-09-18 02:13] LABS: BASOPHILS # (AUTO) 0.1 10^3/uL (0.0-0.1); EOSINOPHILS # (AUTO) 0.4 10^3/uL (0.0-0.3); LYMPHOCYTES # (AUTO) 4.1 X 10^3 (1.0-4.0); NEUTROPHILS # (AUTO) 6.4 X 10^3 (1.8-7.8)
[2020-09-18 02:23] LABS: SMEAR SCAN COMMENT OK
[2020-09-18 02:39] LABS: CARBON DIOXIDE 23 MMOL/L (21-32); CHLORIDE 106 MMOL/L (98-107); SODIUM 138 MMOL/L (135-145)
[2020-09-18 02:40] LABS: BUN/CREATININE RATIO 15; CALCIUM 9.2 MG/DL (8.5-10.1); CREATININE SERUM 0.68 MG/DL (0.60-1.30); GFR ESTIMATED > 60; GLUCOSE 107 MG/DL (70-105)
[2020-09-18 03:07] VITALS: BP 139/80
--- NOTE | 2020-09-18 06:59 | Diagnostic Imaging Report ---
INDICATION: Cough, shortness of air. TECHNIQUE: Two view chest 1:49 AM CORRELATION STUDY: None FINDINGS: The heart size, mediastinal configuration and pulmonary vasculature are within normal limits. The lungs are clear with no consolidating infiltrate. There is no significant pleural effusion or pneumothorax. Visualized osseous structures are unremarkable. IMPRESSION: 1. Negative for acute abnormality of the chest. Dictated by: Dictated on workstation # [id number]
== END 2020-09-18 03:07 | disposition home or self-care (01) ==
LOC: EDUNIT# 01:30 → ER FS 01:32
DX: J40 Bronchitis, not specified as acute or chronic (principal); Z88.5 Allergy status to narcotic agent
CPT/HCPCS: 36415; 71046; 80048; 83880; 85025; 94640

== ENCOUNTER → 2021-06-25 | Outpatient (CLI) | payer BC ==
--- NOTE | 2021-06-25 12:58 | Diagnostic Imaging Report ---
INDICATION: Cough. TIME OF EXAM: 12:37 PM Correlation is made with prior chest from 09/18/2020. Heart size normal. Lungs do show some hyperinflation. No infiltrates are detected. There is no effusion or pneumothorax. The pulmonary vascularity is normal. IMPRESSION: No acute cardiopulmonary process is detected. Dictated by: Dictated on workstation # [id number]
== END ==
LOC: RAD FS 12:17
PROVIDERS: ATTEND Nurse Practitioner Family
DX: R05.3 Chronic cough (principal)
CPT/HCPCS: 71046